=== PATIENT | female | born 1995 | race Caucasian/White ===

== ENCOUNTER 2021-08-26 14:32 | Emergency (ER) | payer MEDICAID ==
[~2021-08-26] VITALS: Ht 160 cm; Wt 61.0 kg
[2021-08-26 14:34] VITALS: BP 118/86
[2021-08-26] MEDS ORDERED: MECLIZINE 25MG TABLET PO ONE (15:15)
[2021-08-26 16:23] LABS: CLARITY URINE TURBID (CLEAR); COLOR URINE YELLOW (YELLOW); KETONES URINE NEGATIVE (NEGATIVE); LEUKOCYTE ESTERASE URINE 1+ (NEGATIVE); NITRITE URINE NEGATIVE (NEGATIVE); OCCULT BLOOD URINE 3+ (NEGATIVE); PH URINE 8.5 (4.5-8.0); PROTEIN URINE 1+ (NEGATIVE); SPECIFIC GRAVITY URINE 1.013 (1.005-1.030); UROBILINOGEN URINE 0.2 E.U./dL (0.2-1.0)
[2021-08-26 16:24] LABS: UCG SCREEN NEGATIVE
== END 2021-08-26 18:02 | disposition left against medical advice (07) ==
LOC: ER 14:32
DX: R51.9 Headache, unspecified (principal); R10.9 Unspecified abdominal pain; R11.2 Nausea with vomiting, unspecified; Z91.81 History of falling
CPT/HCPCS: 81003; 81025; 99283; J8597